=== PATIENT | female | born 1970 | race Caucasian/White ===

== ENCOUNTER → 2023-06-11 17:00 | Outpatient (CLI) | payer OTHER, SELFPAY ==
--- NOTE | 2023-06-11 | DI.US.S_ITS ---
PROCEDURE: US ABDOMEN COMPLETE INDICATIONS: RIGHT UPPER AND LOWER QUADRANT PAIN TECHNIQUE: Real-time scanning was performed of the abdominal and retroperitoneal organs, with image documentation. COMPARISON: [facility], US, US ABDOMEN COMPLETE, 09/20/2021, 9:58. Outside Film, US, US ABDOMEN COMPLETE, 10/01/2019, 10:44. FINDINGS: Liver: The liver demonstrates normal size. The liver demonstrates generalized moderately increased echogenicity. This decreases ultrasound sensitivity for detection of hepatic masses. The main portal vein demonstrates normal size and demonstrates normal appearing, hepatopetal flow. Gallbladder: No findings of gallstones or sludge are seen. The gallbladder wall is not thickened, measuring 3 mm or less. Incidental note is made of phyrngian cap. No specific pericholecystic fluid is seen. The sonographic Thakkar sign is negative. Biliary ducts: Intrahepatic bile ducts are non-dilated. Extrahepatic bile duct caliber measures 5 mm. Normal is 6-7 mm or less in diameter, or 10 mm or less post-cholecystectomy. Pancreas: Visualized portions of the pancreas are sonographically normal. Spleen: Spleen is normal in size and homogeneous in echotexture. Kidneys: Kidneys are normal in size and echotexture. Right kidney measures 10.4 cm long; left kidney measures 11.1 cm long. No hydronephrosis or nephrolithiasis. No solid masses. The left kidney demonstrates a scalloped contour appears Aorta: Visualized aorta is normal in caliber at less than 3 cm. Iliacs: Proximal common iliac arteries are normal in caliber at less than 2.5 cm. IVC: Intrahepatic inferior vena cava is patent. Miscellaneous: No free abdominal fluid. IMPRESSION: The gallbladder demonstrates a normal sonographic appearance. No biliary dilatation is seen. The liver demonstrates increased echogenicity. This finding is nonspecific, yet it is most commonly attributed to fatty infiltration. Dictated by: Arthur Alonzo M.D. on 06/11/2023 at 18:03 Approved by: Arthur Alonzo M.D. on 06/11/2023 at 18:05
== END ==
PROVIDERS: Referring Provider Chiropractor; Visit Provider Chiropractor
DX: R10.31 Right lower quadrant pain (principal); R11.0 Nausea
CPT/HCPCS: 76700